=== PATIENT | female | born 1955 | race Caucasian/White ===

== ENCOUNTER → 2021-03-30 | Outpatient (CLI) | payer BC | LOC: MC.RAD 03-25 14:15 | DX: Z12.31 Encounter for screening mammogram for malignant neoplasm of breast (principal) ==

== ENCOUNTER → 2022-07-06 | Outpatient (CLI) | payer BC | LOC: MC.RAD 10:45 | DX: Z12.31 Encounter for screening mammogram for malignant neoplasm of breast (principal) ==

== ENCOUNTER → 2024-09-05 | Outpatient (CLI) | payer OTHER ==
[~2024-09-05] MED LIST: MULTI-VITAMIN W1 TA1 PO; OCUVITE1 TA1 PO; OMEGA-31 SGL PO; PRESERVISION1 SGL PO; THE MEDICINE S200 M2 PO; ZETIA 10MG TAB10 MG PO
== END ==
LOC: MC.RAD 08:43
DX: Z12.31 Encounter for screening mammogram for malignant neoplasm of breast (principal)